=== PATIENT | male | born 1975 | race Caucasian/White ===

== ENCOUNTER 2022-05-21 21:56 | Emergency (ER) | payer BC, OTHER ==
[2022-05-21] MEDS ORDERED: Ketorolac 10 MG Tab PO ONE (21:57)
[2022-05-21] MEDS ORDERED: hydrOXYzine HCl 25 MG Tab PO ONE (21:57)
[2022-05-22] MEDS ORDERED: Ketorolac 10 MG Tab ONE ×2 (01:05→01:07)
[2022-05-22] MEDS ORDERED: hydrOXYzine HCl 25 MG Tab ONE (01:06)
== END 2022-05-22 01:17 | disposition home or self-care (01) ==
LOC: DL.ED 21:56
DX: S46.212A Strain of muscle, fascia and tendon of other parts of biceps, left arm, initial encounter (principal); X50.1XXA Overexertion from prolonged static or awkward postures, initial encounter
CPT/HCPCS: 99283; 99284; A9270-GY